=== PATIENT | male | born 1965 | race African-American/Black ===

== ENCOUNTER 2018-08-23 02:00 | Observation (INO) ==
[2018-08-23] MEDS ORDERED: Acetaminophen 325 MG Tablet PO PRN (05:50)
[2018-08-23] MEDS ORDERED: Bisacodyl 10 MG Supp RECTAL PRN (05:50)
[2018-08-23] MEDS ORDERED: Morphine Inj 4 MG/ML Vial IV.PUSH PRN (05:53)
[2018-08-23] MEDS ORDERED: Dextrose 50% in Water 50 ML Vial IV.PUSH PRN (05:56)
[2018-08-23] MEDS ORDERED: Heparin - SQ 10,000 UNITS/ML Vial SQ SCH (06:00)
[2018-08-23] MEDS: Insulin NovoLOG Aspart Correctional Sugar Inj SQ SCH ×4 (09:16→21:45)
--- NOTE | 2018-08-23 10:42 | P.HP ---
History of Present Illness Primary Care Physician: Lane Kohli MD Chief Complaint: Abdominal pain History of Present Illness: This is a 53-year-old male with a history of obesity, diabetes mellitus, hyperlipidemia and hypertension. He presents to the emergency department because of abdominal pain. States he has been having recurrent severe infraumbilical crampy pain since last week. Yesterday he also developed left lower quadrant pain radiating to the left flank prompting ER visit. Denies fever, chills, nausea, vomiting, diarrhea and UTI symptoms. Noted some concentrated urine early last week that resolved. CT of the abdomen pelvis revealed 2-3 mm stone at the left ureterovesical junction that is causing mild fullness of the left collecting system and distal left periureteric stranding. Creatinine also elevated 2.2. He was then transferred from [place] ED to [place]. He was also started on IV hydration. Currently he is pain-free on IV morphine. He has been kept n.p.o. and GI has been consulted. All other systems reviewed negative Review of Systems All other systems reviewed negative except as stated in HPI PMFSH - History History Provided By: Patient - Medical History Medical History: Medical History (Last Reviewed 08/23/18 @ 10:38 by Drake Shipley MD) Diabetes Elevated cholesterol HBP (high blood pressure) - Surgical History Surgical History: Surgical History (Last Reviewed 08/23/18 @ 10:38 by Drake Shipley MD) No history of previous surgery - Family History Family History: Family History (Last Updated 08/23/18 @ 10:38 by Drake Shipley MD) Other No pertinent family history - Tobacco History Second Hand Smoke Exposure: No Smoking Status: Never smoker - Alcohol History How Often Do You Have a Drink Containing Alcohol: Never - Substance Use History Substance History: No History of Abuse Medications and Allergies Active Medications: Active Medications Acetaminophen (Tylenol) 650 mg PO Q4H PRN PRN Reason: Temp > 100.4 Bisacodyl (Dulcolax Supp) 10 mg RECTAL DAILY PRN PRN Reason: SEVERE CONSITIPATION Brimonidine Tartrate (Alphagan 0.2% Opth Drops) drops EACH EYE TID [facility] Clonidine HCl (Catapres) 0.1 mg PO Q6H PRN PRN Reason: SEE LABEL COMMENTS Last Admin: 08/23/18 09:22 Dose: 0.1 mg Dextrose (D50w Vial) 50 ml IV.PUSH UNSCH PRN PRN Reason: PER HYPOGLYCEMIA PROTOCOL Glucagon (Glucagon Inj) 1 mg OTHER PRN PRN PRN Reason: for Hypoglycemia Protocol Lactated Ringer's (Lr 1000 Ml Inj) 1,000 mls @ 125 mls/hr IV.CONT .Q8H [facility] Last Admin: 08/23/18 09:26 Dose: 125 mls/hr Insulin Aspart (Novolog Insulin Correctional Sugar Inj) 0 unit SQ ACHS [facility]; Protocol Last Admin: 08/23/18 09:16 Dose: Not Given Latanoprost (Xalatan 0.005% Opth Drops) drop EACH EYE QPM [facility] Metoprolol Tartrate (Lopressor) 100 mg PO DAILY [facility] Morphine Sulfate (Morphine Inj) 2 mg IV.PUSH Q3H PRN PRN Reason: pain > 4 Non-Formulary Medication (Timolol [Timolol]) 1 drp EACH EYE BID [facility] Ondansetron HCl (Zofran Inj) 4 mg IV.PUSH Q6H PRN PRN Reason: NAUSEA OR VOMITING Sennosides (Senokot) 17.2 mg PO Q12H PRN PRN Reason: Moderate Constipation Allergies Allergy/AdvReac Type Severity Reaction Status Date / Time No Known Allergies Allergy Verified 08/23/18 02:12 Home Medications Medication Instructions Recorded Confirmed Type brimonidine 1 drp OPHTHALMIC (EYE) TID 08/23/18 08/23/18 History hydrochlorothiazide 50 mg PO DAILY 08/23/18 08/23/18 History insulin aspart U-100 [Novolog 12 unit SUBCUT QPM 08/23/18 08/23/18 History Flexpen U-100 Insulin] insulin glargine U-300 conc 56 unit SUBCUT DAILY 08/23/18 08/23/18 History [Toujeo SoloStar U-300 Insulin] latanoprost 1 drp OPHTHALMIC (EYE) QPM 08/23/18 08/23/18 History liraglutide [Victoza 2-Ken] 12 unit SUBCUT DAILY 08/23/18 08/23/18 History metformin 1,000 mg PO BID 08/23/18 08/23/18 History metoprolol tartrate 100 mg PO DAILY 08/23/18 08/23/18 History rosuvastatin See Label Instructions .ROUTE 08/23/18 08/23/18 History .COMPLEX timolol 1 drp OPHTHALMIC (EYE) BID 08/23/18 08/23/18 History valsartan 80 mg PO DAILY 08/23/18 08/23/18 History Exam Vital signs: Vital Signs 08/23/18 08:59 Temperature 97.5 F L Pulse Rate 84 Respiratory Rate 20 Blood Pressure 183/95 H Pulse Oximetry 97 Intake & Output 08/22/18 08/23/18 08/23/18 18:59 06:59 18:59 Output Total 225 / 225 Balance -225 / -225 Weight 156.1 kg Output: Urine 225 / 225 Other: Date of Last Bowel Movement 08/22/18 Weight On Admission 156.1 kg Narrative: GENERAL: Well-developed, obese in no distress SKIN: Warm and dry. HEAD: Atraumatic. Normocephalic. EYES: Pupils equal and round. No scleral icterus. No injection or drainage. ENT: No nasal bleeding or discharge. Mucous membranes pink and moist. NECK: Trachea midline. No JVD. CARDIOVASCULAR: Regular rate and rhythm. RESPIRATORY: No accessory muscle use. Clear to auscultation. Breath sounds equal bilaterally. GASTROINTESTINAL: Abdomen soft, obese, nondistended. No CVA tenderness MUSCULOSKELETAL: Extremities without clubbing, cyanosis, or edema. No obvious deformities. NEUROLOGICAL: Awake and alert. No obvious cranial nerve deficits. Motor grossly within normal limits. Five out of 5 muscle strength in the arms and legs. Normal speech. PSYCHIATRIC: Appropriate mood and affect; insight and judgment normal. Caprini VTE Risk Assessment Caprini VTE Risk Assessment: Moderate/High Risk (score >= 2) Caprini Risk Assessment Model: Point Value = 1 Point Value = 2 Point Value = 3 Point Value = 5 Age 41-60 Minor surgery BMI > 25 kg/m2 Swollen legs Varicose veins or History of unexplained or recurrent spontaneous Oral contraceptives or hormone replacement Sepsis (< 1 month) Serious lung disease, including pneumonia (< 1 month) Abnormal pulmonary function Acute myocardial infarction Congestive heart failure (< 1 month) History of inflammatory bowel disease Medical patient at bed rest Age 61-74 Arthroscopic surgery Major open surgery (> 45 min) Laparoscopic surgery (> 45 min) Malignancy Confined to bed (> 72 hours) Immobilizing plaster cast Central venous access Age >= 75 History of VTE Family history of VTE Factor V Leiden Prothrombin [id number] Lupus anticoagulant Anticardiolipin antibodies Elevated serum homocysteine Heparin-induced thrombocytopenia Other congenital or acquired thrombophilia Stroke (< 1 month) Elective arthroplasty Hip, pelvis, or leg fracture Acute spinal cord injury (< 1 month) Prophylaxis Regimen: Total Risk Factor Score Risk Level Prophylaxis Regimen 0-1 Low Early ambulation 2 Moderate Order ONE of the following: *Sequential Compression Device (SCD) *Heparin 5000 units SQ BID 3-4 Higher Order ONE of the following medications: *Heparin 5000 units SQ TID *Enoxaparin/Lovenox 40 mg SQ daily (WT < 150 kg, CrCl > 30 mL/min) *Enoxaparin/Lovenox 30 mg SQ daily (WT < 150 kg, CrCl > 10-29 mL/min) *Enoxaparin/Lovenox 30 mg SQ BID (WT < 150 kg, CrCl > 30 mL/min) AND/OR *Sequential Compression Device (SCD) 5 or more Highest Order ONE of the following medications: *Heparin 5000 units SQ TID (Preferred with Epidurals) *Enoxaparin/Lovenox 40 mg SQ daily (WT < 150 kg, CrCl > 30 mL/min) *Enoxaparin/Lovenox 30 mg SQ daily (WT < 150 kg, CrCl > 10-29 mL/min) *Enoxaparin/Lovenox 30 mg SQ BID (WT < 150 kg, CrCl > 30 mL/min) AND *Sequential Compression Device (SCD) Assessment and Plan - Plan This is a 53-year-old male with a history of obesity, diabetes mellitus, hyperlipidemia and hypertension. He presents with severe lower quadrant pain. CT of the abdomen pelvis revealed 2-3 mm stone at the left ureterovesical junction that is causing mild fullness of the left collecting system and distal left periureteric stranding. Creatinine also elevated 2.2. Obstructive uropathy. Keep n.p.o. for now. Continue IV hydration and pain management with IV morphine. Counseled regarding narcotics. Strain urine. Consult . Acute kidney injury secondary to above. Nonoliguric. Continue IV hydration and avoid nephrotoxins hold metformin and ARB for now. Uncontrolled hypertension. Restart home medications if appropriate. Monitor BP with as needed clonidine. Diabetes mellitus. Monitor fingersticks with sliding scale coverage. Hypoglycemia protocol. We will hold home medications for now patient currently n.p.o. Patient advised not to take metformin until kidney function fully recovers DVT prophylaxis with SCD and early ambulation per Discharge Planning: Per
[2018-08-23] MEDS ORDERED: Naloxone Inj 0.4 MG/ML Vial IV.PUSH PRN (11:43)
[2018-08-23] MEDS: Metoprolol Tartrate 100 MG Tablet PO SCH (12:27)
[2018-08-23] MEDS: Timolol 0.5% Drops 5 ML Bottle EACH EYE SCH ×2 (12:27→21:46)
[2018-08-23] MEDS: Brimonidine 0.2% Opth Drops 5 ML Bottle EACH EYE SCH ×2 (12:27→17:17)
[2018-08-23] MEDS: Insulin Detemir Inj 1,000 UNIT/10 ML Vial SQ SCH (12:34)
[2018-08-23] MEDS ORDERED: LIRAGLUTIDE 12 UNIT SQ SCH (13:00)
--- NOTE | 2018-08-23 16:28 | P.CONURO ---
History of Present Illness Service: Urology Consult date: 08/23/18 Reason for Consult: Nephrolithiasis Primary Care Provider: Lane Kohli MD Chief Complaint: Abdominal pain History of Present Illness: 53yo male admitted due to abdominal pain. Patient was evaluated with CT scan which identifed a 2-3mm stone located in the left distal ureter/UVJ. Mild hydronephrosis noted. Since admit his pain has improved,no fevers, normal WBC. His Cr is elevated. He has a family history of kidney stones, however he himself has not had any kidney stones until now. Denies an N/V. Review of Systems All other systems reviewed negative except as stated in HPI Cardiovascular: Denies chest pain Respiratory: Denies cough Gastrointestinal: Denies abdominal pain Genitourinary: Denies blood in urine Neurologic: Denies abnormal hearing PMFSH - History History Provided By: Patient - Medical History Medical History: Medical History (Last Reviewed 08/23/18 @ 10:38 by Drake Shipley MD) Diabetes Elevated cholesterol HBP (high blood pressure) - Surgical History Surgical History: Surgical History (Last Reviewed 08/23/18 @ 10:38 by Drake Shipley MD) No history of previous surgery - Family History Family History: Family History (Last Updated 08/23/18 @ 10:38 by Drake Shipley MD) Other No pertinent family history - Tobacco History Second Hand Smoke Exposure: No Smoking Status: Never smoker - Alcohol History How Often Do You Have a Drink Containing Alcohol: Never - Substance Use History Substance History: No History of Abuse Medications and Allergies Active Medications: Active Medications Acetaminophen (Tylenol) 650 mg PO Q4H PRN PRN Reason: Temp > 100.4 Hydrocodone Bitart/Acetaminophen ([place] 7.5/325) 1 tab PO Q4H PRN PRN Reason: PAIN SCALE 6 TO 10 Hydrocodone Bitart/Acetaminophen ([place] 5/325) 1 tab PO Q4H PRN PRN Reason: PAIN SCALE 3 TO 5 Bisacodyl (Dulcolax Supp) 10 mg RECTAL DAILY PRN PRN Reason: SEVERE CONSITIPATION Brimonidine Tartrate (Alphagan 0.2% Opth Drops) 1 drops EACH EYE TID [facility] Last Admin: 08/23/18 12:27 Dose: 1 drops Clonidine HCl (Catapres) 0.1 mg PO Q6H PRN PRN Reason: SEE LABEL COMMENTS Last Admin: 08/23/18 09:22 Dose: 0.1 mg Dextrose (D50w Vial) 50 ml IV.PUSH UNSCH PRN PRN Reason: PER HYPOGLYCEMIA PROTOCOL Glucagon (Glucagon Inj) 1 mg OTHER PRN PRN PRN Reason: for Hypoglycemia Protocol Lactated Ringer's (Lr 1000 Ml Inj) 1,000 mls @ 125 mls/hr IV.CONT .Q8H [facility] Last Admin: 08/23/18 15:48 Dose: 125 mls/hr Insulin Aspart (Novolog Insulin Correctional Sugar Inj) 0 unit SQ ACHS [facility]; Protocol Last Admin: 08/23/18 12:23 Dose: Not Given Insulin Aspart (Novolog Inj) 12 units SQ QPM [facility] Insulin Detemir (Levemir Inj) 56 unit SQ DAILY [facility] Last Admin: 08/23/18 12:34 Dose: Not Given Latanoprost (Xalatan 0.005% Opth Drops) [address] [facility] Metoprolol Tartrate (Lopressor) 100 mg PO DAILY [facility] Last Admin: 08/23/18 12:27 Dose: 100 mg Morphine Sulfate (Morphine Inj) 2 mg IV.PUSH Q3H PRN PRN Reason: BREAKTHROUGH PAIN Naloxone HCl (Narcan Inj) 0.4 mg IV.PUSH UNSCH PRN PRN Reason: SEE LABEL COMMENTS Ondansetron HCl (Zofran Inj) 4 mg IV.PUSH Q6H PRN PRN Reason: NAUSEA OR VOMITING Patient Own Medication ( Liraglutide [Victoza 2-Ken] 12 Unit) 0 each SQ DAILY [facility] Sennosides (Senokot) 17.2 mg PO Q12H PRN PRN Reason: Moderate Constipation Tamsulosin HCl (Flomax) 0.4 mg PO DAILY [facility] Last Admin: 08/23/18 12:27 Dose: 0.4 mg Timolol Maleate (Timoptic 0.5% Drops) 1 drops EACH EYE BID [facility] Last Admin: 08/23/18 12:27 Dose: 1 drops Allergies Allergy/AdvReac Type Severity Reaction Status Date / Time No Known Allergies Allergy Verified 08/23/18 02:12 Home Medications Medication Instructions Recorded Confirmed Type brimonidine 1 drp OPHTHALMIC (EYE) TID 08/23/18 08/23/18 History hydrochlorothiazide 50 mg PO DAILY 08/23/18 08/23/18 History insulin aspart U-100 [Novolog 12 unit SUBCUT QPM 08/23/18 08/23/18 History Flexpen U-100 Insulin] insulin glargine U-300 conc 56 unit SUBCUT DAILY 08/23/18 08/23/18 History [Toujeo SoloStar U-300 Insulin] latanoprost 1 drp OPHTHALMIC (EYE) QPM 08/23/18 08/23/18 History liraglutide [Victoza 2-Ken] 12 unit SUBCUT DAILY 08/23/18 08/23/18 History metformin 1,000 mg PO BID 08/23/18 08/23/18 History metoprolol tartrate 100 mg PO DAILY 08/23/18 08/23/18 History rosuvastatin See Label Instructions .ROUTE 08/23/18 08/23/18 History .COMPLEX timolol 1 drp OPHTHALMIC (EYE) BID 08/23/18 08/23/18 History valsartan 80 mg PO DAILY 08/23/18 08/23/18 History Physical Exam Vital Signs - 24 hr 08/23/18 08:59 08/23/18 12:00 08/23/18 16:00 Temperature 97.5 F L 97.8 F 97.3 F L Pulse Rate 84 80 71 Respiratory Rate 20 20 20 Blood Pressure 183/95 H 151/87 H 173/90 H Pulse Oximetry 97 97 Physical Exam: GENERAL: This is a well-nourished, well-developed patient, in no apparent distress. SKIN: No rashes, ecchymoses or lesions. Cool and dry. HEAD: Atraumatic. Normocephalic. EYES: Extraocular motions intact. No scleral icterus. No injection or drainage. ENT: Nose without bleeding, purulent drainage. Uvula midline. Airway patent. NECK: Trachea midline. CARDIOVASCULAR: normal pulse RESPIRATORY: Nonlabored GASTROINTESTINAL: Abdomen soft, non-tender, nondistended. MUSCULOSKELETAL: Extremities without clubbing, cyanosis, or edema. No joint tenderness, effusion, or edema noted. NEUROLOGICAL: Awake and alert. Motor and sensory grossly within normal limits. Normal speech. Lab results reviewed: Yes Laboratory Results - last 24 hr 08/23/18 08/23/18 08/23/18 08:51 12:34 15:50 POC Glucose 147 H 118 H 152 H Personally reviewed images: Yes Assessment and Plan - Assessment (1) Acute kidney injury Code(s): N17.9 - Acute kidney failure, unspecified Status: Acute (2) Calculus, ureteral Code(s): N20.1 - Calculus of ureter Status: Acute - Plan Patient currently without any pain. Patient likely passed stone. No Surgical intervention indicated at this time. Patient may followup as outpatient after discharge. Please call with questions.
[2018-08-23 20:15] VITALS: RESP 18
[2018-08-23] MEDS ORDERED: Latanoprost 0.005% Opth Drops 2.5 ML Bottle EACH EYE SCH (21:00)
[2018-08-24 06:41] LABS: Potassium 3.8 meq/L (3.5-5.1)
[2018-08-24 06:44] LABS: Baso % (Auto) 0.7 % (0.0-2.0); Calcium 7.8 mg/dL (8.5-10.1); Eos # (Auto) 0.3 th/mm3 (0.0-0.4); Eos % (Auto) 4.8 % (0.0-4.0); Hematocrit 32.6 % (39.0-51.0); Hemoglobin 11.1 gm/dL (13.0-17.0); Lymph # (Auto) 1.7 th/mm3 (1.0-4.8); Mean Corpuscular HGB Conc 34.1 % (32.0-36.0); Mean Corpuscular Hemoglobin 27.9 pg (27.0-34.0); Mean Corpuscular Volume 81.7 fL (80.0-100.0); Mean Platelet Volume 8.5 fL (7.0-11.0); Mono # (Auto) 0.6 th/mm3 (0.0-0.9); Mono % (Auto) 9.2 % (0.0-8.0); Neut # (Auto) 3.5 th/mm3 (1.8-7.7); Neut % (Auto) 58.3 % (16.0-70.0); Platelet Count 416 th/mm3 (150-450); Red Blood Count 3.99 mil/mm3 (4.50-5.90); Red Cell Distribution Width 15.8 % (11.6-17.2); White Blood Count 6.2 th/mm3 (4.0-11.0)
[2018-08-24 06:45] LABS: Carbon Dioxide 26.7 meq/L (21.0-32.0); Magnesium 1.9 mg/dL (1.5-2.5)
[2018-08-24 08:23] VITALS: PULSE 75; TEMP 96.9; O2SAT 94
[2018-08-24] MEDS ORDERED: hydroCHLOROthiazide 25 MG Tablet PO SCH (09:00)
--- NOTE | 2018-08-24 09:29 | P.PN ---
Subjective Interval history: F/U CARMENZA and obstructive uropathy. He is doing fine voiding without difficulty. Denies any pain. BP slightly elevated on IV fluids no headache, dizziness, chest pain or shortness of breath Physical Exam Vital signs: Vital Signs 08/23/18 12:00 08/23/18 16:00 08/23/18 20:00 Temperature 97.8 F 97.3 F L 98.0 F Pulse Rate 80 71 74 Respiratory Rate 20 20 18 Blood Pressure 151/87 H 173/90 H 167/90 H Pulse Oximetry 97 94 L 08/24/18 00:00 08/24/18 04:00 08/24/18 08:00 Temperature 97.7 F 95.2 F L 96.9 F L Pulse Rate 77 75 Respiratory Rate 18 18 18 Blood Pressure 183/94 H 168/96 H Pulse Oximetry 100 94 L Intake & Output 08/23/18 08/24/18 08/24/18 18:59 06:59 18:59 Intake Total 1581 / 1581 2220 / 2220 Output Total 225 / 225 2800 / 2800 Balance 1356 / 1356 -580 / -580 Weight 156.1 kg 158.5 kg Intake: IV 1000 / 1000 1700 / 1700 LR 1000 mL Inj 1,000 ML @ 125 1000 / 1000 1700 / 1700 mls/hr IV.CONT .Q8H [facility] Rx#: [id number] Oral 581 / 581 520 / 520 Output: Urine 225 / 225 2800 / 2800 Other: # Voids 3 Date of Last Bowel Movement 08/22/18 08/23/18 Weight On Admission 156.1 kg Narrative: GENERAL: Well-developed, obese in no distress SKIN: Warm and dry. CARDIOVASCULAR: Regular rate and rhythm. RESPIRATORY: No accessory muscle use. Clear to auscultation. Breath sounds equal bilaterally. GASTROINTESTINAL: Abdomen soft, obese, nondistended. No CVA tenderness MUSCULOSKELETAL: Extremities without clubbing, cyanosis, or edema. No obvious deformities. NEUROLOGICAL: Awake and alert. No obvious cranial nerve deficits. Motor grossly within normal limits. Five out of 5 muscle strength in the arms and legs. Normal speech. PSYCHIATRIC: Appropriate mood and affect; insight and judgment normal. Results - Labs CBC & Chem 7: 08/24/18 05:10 08/24/18 05:10 Laboratory Results - last 24 hr 08/23/18 08/23/18 08/23/18 08:51 12:34 15:50 CBC w Diff WBC RBC Hgb Hct MCV MCH MCHC RDW Plt Count MPV Neut % (Auto) Lymph % (Auto) [place] % (Auto) Eos % (Auto) Baso % (Auto) Neut # (Auto) Lymph # (Auto) [place] # (Auto) Eos # (Auto) Baso # (Auto) WBC Differential Differential Comment Sodium Potassium Chloride Carbon Dioxide Anion Gap BUN Creatinine Estimated GFR POC Glucose 147 H 118 H 152 H Random Glucose Calcium Magnesium 08/23/18 08/24/18 08/24/18 21:13 05:10 05:10 CBC w Diff Auto diff final WBC 6.2 RBC 3.99 L Hgb 11.1 L Hct 32.6 L MCV 81.7 MCH 27.9 MCHC 34.1 RDW 15.8 Plt Count 416 MPV 8.5 Neut % (Auto) 58.3 Lymph % (Auto) 27.0 [place] % (Auto) 9.2 H Eos % (Auto) 4.8 H Baso % (Auto) 0.7 Neut # (Auto) 3.5 Lymph # (Auto) 1.7 [place] # (Auto) 0.6 Eos # (Auto) 0.3 Baso # (Auto) 0.0 WBC Differential . Differential Comment . Sodium 143 Potassium 3.8 Chloride 108 H Carbon Dioxide 26.7 Anion Gap 8 BUN 16 Creatinine 1.30 Estimated GFR 70 L POC Glucose 157 H Random Glucose 133 H Calcium 7.8 L Magnesium 1.9 08/24/18 08:04 CBC w Diff WBC RBC Hgb Hct MCV MCH MCHC RDW Plt Count MPV Neut % (Auto) Lymph % (Auto) [place] % (Auto) Eos % (Auto) Baso % (Auto) Neut # (Auto) Lymph # (Auto) [place] # (Auto) Eos # (Auto) Baso # (Auto) WBC Differential Differential Comment Sodium Potassium Chloride Carbon Dioxide Anion Gap BUN Creatinine Estimated GFR POC Glucose 147 H Random Glucose Calcium Magnesium - Procedures none Assessment and Plan - Plan This is a 53-year-old male with a history of obesity, diabetes mellitus, hyperlipidemia and hypertension. He presents with severe lower quadrant pain. CT of the abdomen pelvis revealed 2-3 mm stone at the left ureterovesical junction that is causing mild fullness of the left collecting system and distal left periureteric stranding. Creatinine also elevated 2.2. Obstructive uropathy. Improved likely passed stone patient has no more pain. Continue Flomax and pain management with Lortab and IV morphine. Counseled regarding narcotics. Strain urine. Consulted . Acute kidney injury secondary to above. Nonoliguric. Resolved discontinue IV hydration. Avoid nephrotoxins Uncontrolled hypertension secondary to IV fluids and holding home BP meds. Asymptomatic. IV fluids will be discontinued and home meds will be restarted. Monitor BP with as needed clonidine. Diabetes mellitus. Monitor fingersticks with sliding scale coverage. Hypoglycemia protocol. Stable restart home medication DVT prophylaxis with SCD and early ambulation Discharge Planning: Discharge patient to home Condition on discharge: Improved Regular Diet as tolerated Ad Jacqui activity no driving Rx written: Lortab and Flomax Follow-up with primary care physician in
[2018-08-24] MEDS: Timolol 0.5% Drops 5 ML Bottle EACH EYE SCH (09:38)
[2018-08-24] MEDS: Brimonidine 0.2% Opth Drops 5 ML Bottle EACH EYE SCH (09:38)
[2018-08-24] MEDS: Metoprolol Tartrate 100 MG Tablet PO SCH (09:39)
[2018-08-24] MEDS: Insulin NovoLOG Aspart Correctional Sugar Inj SQ SCH (09:39)
[2018-08-24] MEDS: Insulin Detemir Inj 1,000 UNIT/10 ML Vial SQ SCH (09:40)
[2018-08-24 12:09] VITALS: BP 142/78
== END 2018-08-24 12:30 | disposition home or self-care (01) ==
LOC: PHEDDLT 02:00 → PH3 02:00
PROVIDERS: ADMIT Internal Medicine; ATTEND Internal Medicine